=== PATIENT | male | born 1950 | race Caucasian/White ===

== ENCOUNTER 2018-02-27 08:39 | Outpatient (CLI) | payer OTHER, MEDICARE, SELFPAY ==
[2018-02-09 09:50] VITALS: BMI 30.9
[2018-02-27] MEDS: LACTATED RINGERS 1,000 ML 42 ML IV (09:05)
[2018-02-27] MEDS: CELECOXIB 200 MG CAPSULE PO (09:21)
[2018-02-27] MEDS: ACETAMINOPHEN 325 MG TABLET 975 MG PO (09:21)
[2018-02-27] MEDS: PREGABALIN 75 MG CAPSULE PO (09:22)
[2018-02-27 09:24] VITALS: BP 148/93; PULSE 77; RESP 16; TEMP 36.8; O2SAT 99; BMI 30.9
--- NOTE | 2018-02-27 10:01 | PM.PREOP ---
Pre-operative Note Interval Note Pre-op Check: Yes History & Physical Reviewed by Physician and Yes Exam Performed Changes: Yes H&P completed within 30 days and has changed as indicated here:: The patient had a flu shot on the day of his history and physical to which he had an adverse reaction. This has subsequently cleared. He was also found to have a right bundle branch block on his EKG and has had a satisfactory stress test since his history and physical.
--- NOTE | 2018-02-27 10:25 | P.OP_ITS ---
Operative Date/Time/Diagnoses Date of procedure: 02/27/18 Pre-op diagnosis: Left knee osteoarthritis Post-op diagnosis: same Procedure & Clinicians Procedure: Left total knee replacement Same procedure as scheduled: Yes Indications: The patient has had progressively worsening left knee pain with radiographic changes consistent with arthritis. Non-operative management has failed and the patient has requested total knee replacement. The risks, benefits and alternatives to surgery were discussed with the patient prior to proceeding. Risks discussed included, but were not limited to, failure to relieve pain, stiffness, infection, nerve damage, deep venous thrombosis, pulmonary embolism, stroke, coma, heart attack, permanent paralysis and , as well as the potential need for eventual revision of the prosthetic. Surgeon: Danilo Billings Board Certified Music Therapist: Leonila Lerma Click Yes if Unassisted: No Anesthesia Type: Peripheral nerve block and Local Operative Notes Closure Type: primary Specimen(s): none sent Implants & Drains: Implants used in this procedure were manufactured by the [employer] and included the BCS II Journey total knee replacement with a size Applied: implant(s) Blood products transfused: none Procedure in detail: The patient was seen in the pre-operative area, where the left knee was identified as the operative site and this was marked with my initials. The patient received pre-operative antibiotics, and was taken to the operating room and placed on the operative table in the supine position. After satisfactory anesthesia, a cobol engineer out was performed. The left leg was encircled with a tourniquet about the proximal thigh, and the leg was prepared from the toes to the tourniquet with ChloroPrep in the usual fashion and draped through sterile drapes. The leg was elevated and exsanguinated with Eschmark bandage and the tourniquet inflated to [250] mmHg pressure. The knee was approached through an approximately 18 cm incision centered over the patella and carried into the knee through a medial parapatellar arthrotomy. The anterior osteophytes and soft tissues were removed. The rotational landmarks of [place]'s line and the transepicondylar axis were marked on the femur with electrocautery, and intramedullary guide holes for the femur and tibia were created. The distal femoral cut was made in 6 degrees of valgus using the intramedullary guide at the primary cut setting. The proximal tibial cut was then made using the intramedullary guide, taking 9 mm of bone off the less involved side. The extension gap was checked and the rotation of the femoral component confirmed with the gap balancing blocks. The anterior, posterior and chamfer cuts were then made. The posterior osteophytes and soft tissues were then removed. The posterior capsule was injected with part of a mixture of 50 ml 0.25% Marcaine mixed with 20 ml Exparel and 4 mg of morphine for post- operative pain control. The remainder of this mixture was injected into the capsule and subcutaneous tissues during cement curing.The tibia was prepared with the rotation set by an extra medullary guide. Trial tibial and femoral components were then placed and the intercondylar notch cut through the femoral trial. Range of motion was [], with good stability throughout the range. The patella was then cut to accommodate the patellar prosthetic. There was no need for a lateral release.The trials were then removed, and the femoral hole plugged with a bone plug. The bone was prepared with pulsatile lavage, and dried with a sponge. Cement was applied and the final prosthetics placed. Excess cement was removed during and after cement curing. After confirming there was no extruded cement posteriorly, the final tibial insert was placed. The knee was copiously irrigated and the tourniquet deflated. Hemostasis was obtained. The capsule was closed with interrupted # 2 polyester sutures. The subcutaneous layer was closed with 3-0 Vicryl, and the skin with a running 3-0 V -Lock suture and SteriStrips. An Aquacel Ag dressing was applied and the patient was taken to recovery having tolerated the procedure well. Condition: stable Disposition: PACU Plan for aftercare: The patient will be maintained on a standard total knee replacement protocol with weight bearing as tolerated. The patient will receive aspirin and sequential compression devices for DVT prophylaxis. The patient will be discharged home when safe for the home environment.
--- NOTE | 2018-02-27 10:50 | SUR.PREOP ---
After discussion with anesthesia and Dr. Billings, it was decided to reschedule the pt's case. The concern was that the pt had 100mg injection of Lovenox this morning. Dr. Billings to the bedside to discuss and reschedule with pt. A continuing bridging dose of Lovenox was provided by Dr. Billings and the pt is to return on Tuesday at 0800 for his procedure. Per Dr. Billings the last dose of Lovenox will be night, pt is not to take it morning. The pt stated that he understood these instructions. Spouse at bedside confirmed that she also understood. Pt discharged home on foot after IV DC'd.
== END 2018-02-27 10:55 | disposition home or self-care (01) ==
LOC: AC 10:53 → LAB 03-02 14:33
PROVIDERS: Visit Provider Orthopaedic Surgery
PROC: 0SRD0JZ Replacement of Left Knee Joint with Synthetic Substitute, Open Approach (ICD-10-PCS; CPT 27447; principal; 2018-02-27 10:30)
DX: Z53.09 Procedure and treatment not carried out because of other contraindication (principal); M17.31 Unilateral post-traumatic osteoarthritis, right knee; Z79.01 Long term (current) use of anticoagulants

== ENCOUNTER 2018-03-03 07:54 | Inpatient (IN) | payer OTHER, MEDICARE, SELFPAY ==
[2018-02-28 08:34] VITALS: BMI 30.9
[2018-03-03] VITALS (20 sets, daily range): BP systolic 92–144; BP diastolic 52–87; PULSE 60–100; RESP 12–18; TEMP 36.3–37.1; O2SAT 93–98; BMI 30.9
--- NOTE | 2018-03-03 06:30 | DI.RAD.S_ITS ---
PROCEDURE: XR KNEE LT 1TO2V INDICATIONS: prosthesis placement TECHNIQUE: 2 view(s) of the knee acquired. COMPARISON: [facility] Ever Lindquist, JOSEPH, XR KNEE ARTHRITIC SERIES LT, 10/11/2017, 8:44. FINDINGS: Bones: Patient is status post knee joint arthroplasty. Hardware components are in expected positions. Visualized bony structures are intact. The previously seen staple along the lateral aspect of the proximal tibia has been removed. Soft tissues: Overlying postoperative changes are noted. Expected postoperative changes within the overlying soft tissues are present with areas of soft tissue air, edema, and fluid. No unexpected radiopaque foreign bodies are evident. IMPRESSION: Expected postoperative changes related to a total left knee arthroplasty. Dictated by: Nikita Bravo M.D. on 03/03/2018 at 12:11 Approved by: Nikita Bravo M.D. on 03/03/2018 at 12:11
[2018-03-03] MEDS: ACETAMINOPHEN 325 MG TABLET 975 MG PO ×3 (08:34→20:52)
[2018-03-03] MEDS: CELECOXIB 200 MG CAPSULE PO (08:35)
[2018-03-03] MEDS: PREGABALIN 75 MG CAPSULE PO (08:35)
[2018-03-03] MEDS: LACTATED RINGERS 1,000 ML 42 ML IV ×2 (08:52→10:53)
[2018-03-03] MEDS: fentaNYL 100 MCG/2 ML INJ 50 MCG IV (09:20)
[2018-03-03] MEDS: MIDAZOLAM 2 MG/2 ML VIAL IV (09:20)
--- NOTE | 2018-03-03 09:29 | PM.PREOP ---
Pre-operative Note Interval Note Pre-op Check: Yes History & Physical Reviewed by Physician and Yes Exam Performed Changes: No
--- NOTE | 2018-03-03 09:37 | SUR.PREOP ---
Block start time 0925[] . Monitoring initiated and maintained throughout procedure. Oxygen and medications given per anesthesiologist instructions. Patient remained stable throughout procedure, no adverse reactions noted. Block end time [30].
[2018-03-03] MEDS: CEFAZOLIN 2 GM/100 ML FROZ.PIGGY IV ×2 (09:50→17:32)
--- NOTE | 2018-03-03 10:09 | SUR.OPER ---
Supine on padded OR bed. Pillow under head, arms secured on padded armboards <90 degree abduction. Safety belt across torso. Non-operative leg secured with tape over blanket over lower leg. Operative leg secured in DeMayo/Migue positioner. Foam padded brace at thigh of operative leg.
[2018-03-03] MEDS: BUPIVACAINE LIPOSOME 266 MG/20 ML VIAL INJ ×2 (10:19)
[2018-03-03] MEDS: BUPIVACAINE 0.25% W/ EPI VIAL 50 ML INJ (10:19)
[2018-03-03] MEDS: MORPHINE 4 MG/ML INJ INJ (10:21)
--- NOTE | 2018-03-03 12:19 | P.OP_ITS ---
Operative Date/Time/Diagnoses Date of procedure: 03/03/18 Time of procedure: 12:00 Pre-op diagnosis: Left knee osteoarthritis with retained tibial staple Post-op diagnosis: same Procedure & Clinicians Procedure: 1. Left total knee replacement 2. Removal of deep tibial hardware Same procedure as scheduled: Yes Indications: The patient has had progressively worsening left knee pain with radiographic changes consistent with arthritis. Non-operative management has failed and the patient has requested total knee replacement. The risks, benefits and alternatives to surgery were discussed with the patient prior to proceeding. Risks discussed included, but were not limited to, failure to relieve pain, stiffness, infection, nerve damage, deep venous thrombosis, pulmonary embolism, stroke, coma, heart attack, permanent paralysis and , as well as the potential need for eventual revision of the prosthetic. Surgeon: Danilo Billings Program Review Director: Melanie Fonseca Click Yes if Unassisted: No Anesthesia Type: General, Peripheral nerve block and Local Operative Notes Findings: Severe osteoarthritis with very large osteophytes and erosion of the medial tibia. The patient had previously undergone a proximal tibial surgery with a staple which interfered with the placement of the tibial prosthetic. This necessitated a ventral stem placement on the final prosthetic due to the damage to the tibia taking the staple out. Closure Type: primary Specimen(s): none sent Implants & Drains: Implants used in this procedure were manufactured by the [employer] and included the BCS II Journey total knee replacement with a size 7 left Oxinium femoral component, a size 6 left non porous Journey tibial base plate with a 16 mm x 100 mm Yaritza II stem, a 10 mm crosslink polyethylene tibial insert and a 38 mm oval Yaritza II patellar component. Applied: implant(s) Estimated Blood Loss (mL): 50 Tourniquet time (min): 96 Procedure in detail: The patient was seen in the pre-operative area, where the left knee was identified as the operative site and this was marked with my initials. The patient received pre-operative antibiotics, and was taken to the operating room and placed on the operative table in the supine position. After satisfactory anesthesia, a manager multimedia out was performed. The left leg was encircled with a tourniquet about the proximal thigh, and the leg was prepared from the toes to the tourniquet with ChloroPrep in the usual fashion and draped through sterile drapes. The leg was elevated and exsanguinated with Eschmark bandage and the tourniquet inflated to [250] mmHg pressure. The knee was approached through an approximately 18 cm incision centered over the patella and carried into the knee through a medial parapatellar arthrotomy. The anterior osteophytes and soft tissues were removed. The rotational landmarks of Haines's line and the transepicondylar axis were marked on the femur with electrocautery, and intramedullary guide holes for the femur and tibia were created. The distal femoral cut was made in 6 degrees of valgus using the intramedullary guide at the +2 cut setting due to the flexion contracture. The anterior, posterior and chamfer cuts were then made. The proximal tibial cut was made using an extramedullary guide due to interference with the intramedullary guide from the tibial staple. This took 9 mm off the lateral side which corresponded to a skim cut off the eroded medial side. The posterior osteophytes and soft tissues were then removed. The posterior capsule was injected with part of a mixture of 50 ml 0.25% Marcaine mixed with 20 ml Exparel and 4 mg of morphine for post-operative pain control. The remainder of this mixture was injected into the capsule and subcutaneous tissues during cement curing. Prior to tibial preparation due to the interference of the staple with the intramedullary stem of the standard tibial prosthetic the stable needed to be removed. An approximately 4 cm incision was created overlying the expected location of the staple. This was carried through the anterior compartment musculature with Bovie electrocautery cutting the musculature parallel to its fibers. The staple was identified. A quarter-inch straight osteotome was used to circumferentially loosen the stable from the surrounding bone and then a vice heavy equipment operator/paver was used to remove the staple. Due to the damage caused from the removal of the staple I thought it would be prudent to add a short stem to the tibial prosthetic and the tibial canal was enlarged using cylindrical reamers to accommodate the stem. The tibia was prepared with the rotation set by an extra medullary guide. Trial tibial and femoral components were then placed and the intercondylar notch cut through the femoral trial. Range of motion was [0- 120 degrees], with good stability throughout the range. The patella was then cut to accommodate the patellar prosthetic. There was no need for a lateral release.The trials were then removed, and the femoral hole plugged with a bone plug. The bone was prepared with pulsatile lavage, and dried with a sponge. Cement was applied and the final prosthetics placed. Excess cement was removed during and after cement curing. After confirming there was no extruded cement posteriorly, the final tibial insert was placed. The knee was copiously irrigated and the tourniquet deflated. Hemostasis was obtained. The capsule was closed with interrupted # 2 polyester sutures. The subcutaneous layer was closed with 3-0 Vicryl, and the skin with a running 3-0 V-Lock suture and SteriStrips. The staple removal dressing was closed with 0 Vicryl in the muscular fascia, 3 O Vicryl in the subcutaneous layer and a running 4 0 Monocryl and Steri-Strips for skin. Dressings of sterile 4x4s, sterile cast padding and an Alfredo wrap were then applied and the patient was transferred to the recovery room having tolerated the procedure well. Complications: none Condition: stable Disposition: PACU Plan for aftercare: The patient will be maintained on a standard total knee replacement protocol with weight bearing as tolerated. The patient will receive aspirin and sequential compression devices for DVT prophylaxis. The patient will be discharged home when safe for the home environment.
[2018-03-03] MEDS: INSULIN REGULAR 100 UNIT/ML 3 ML VIAL SUBCUT (12:29)
[2018-03-03] MEDS: LACTATED RINGERS 1,000 ML 125 ML IV ×3 (13:35→21:35)
--- NOTE | 2018-03-03 15:01 | PC.NURSE ---
POST OP ARRIVAL - drowsy, awake and responses are appropriate, spouse at bedside, bp 132/84, p 92, 2l 95%, states pain or pressure 4 on scale 0/10, zelda wrap over 4x4's, steristrips, cdi, able wiggle toes and +cms, denies nausea and vale ice chips then apple juice.
--- NOTE | 2018-03-03 15:05 | PT.IPTN ---
Current Diagnoses Bilateral primary osteoarthritis of knee (03/03/18) Other specified postprocedural states (03/03/18) Surgery Performed Operation Date: 03/03/18 09:45 Actual Procedures p Total Knee Arthroplasty and Hardware Removal(Left) - Danilo Billings MD Physical Therapy Treatment Note M2 PT-IP Current Condition Start: 03/03/18 16:49 Freq: NEEDED Status: Active Protocol: Document 03/03/18 14:35 DCW (Rec: 03/03/18 17:02 DCW [id number]) Physical Therapy Current Condition Current Condition Evaluation Date 03/03/18 Treatment Diagnosis Decreased ROM, weakness, pain s/p L TKA Onset Date 03/03/18 Weight Bearing Status Weight Bearing Status Weight Bear as Tolerated M3 PT-IP Subjective Start: 03/03/18 16:49 Freq: NEEDED Status: Active Protocol: Document 03/03/18 14:35 DCW (Rec: 03/03/18 17:02 DCW [id number]) Subjective Physical Therapy Visit Type Type Initial Evaluation Visit Start Time 14:35 Visit Stop Time 15:06 Total Visit Minutes 31 Notes Pt presented to [facility] for a planned L TKA following failure of conservative treatment. Number of PAPER BUNDLER Visits 0 Physical Therapy Visit Comments Patient Comments Pt notes he feels pretty good , admits to a 5-6/10 pain while supine in bed. Pt reports he is a [facility] patient, and was expecting to go home on the day of surgery, but someone decided I had to come up here, so now I'm hoping for tomorrow. Patient Goals Get home as soon as I can. Therapy Pain Assessment Pain When Pain Assessed At Rest Pain Present Pain Present Pain Reported Location Left Knee Intensity 6 Scale Used Numeric (1 - 10) Description Pressure M4 PT-IP Mobility and Gait Start: 03/03/18 16:49 Freq: NEEDED Status: Active Protocol: Document 03/03/18 14:35 DCW (Rec: 03/03/18 17:02 DCW [id number]) PT-Bed Mobility Assessment Rolling Type of Rolling Roll to Left Level of Assist Independent Supine to Sit Supine to Sit Independent Sit to Supine Sit to Supine Independent Scooting Scooting to Edge of Bed Independent PT-Transfer Assessment Sit to and From Stand Sit to and from Stand Standby Assistance Equipment Transfer Assistive Device Bed Rail Gait Belt Front Wheeled Walker Gait Assessment Gait Gait Assistance Required: Contact Guard Assist Distance (Feet) 100 Able to Maintain Weight Bearing Status Yes During Gait Assistive Devices Assistive Device Gait Belt Front Wheeled Walker Gait Deviations General Gait Pattern Antalgic Comments Gait Comments Appropriate gait, step-through pattern with good step length and minimal antalgia PT-Balance Assessment Sitting Balance and Reactions Static Sitting Balance Ability Normal Dynamic Sitting Balance Ability Normal Standing Balance and Reactions Static Standing Balance Ability Good Dynamic Standing Balance Ability Good M5 PT-IP Objective Assessments Start: 03/03/18 16:49 Freq: NEEDED Status: Active Protocol: Document 03/03/18 14:35 DCW (Rec: 03/03/18 17:02 DCW [id number]) Orientation Orientation/Cognition Level of Alertness Alert Orientation Name Birthday Date Place Situation Language Function Ability No Deficits Noted Safety Awareness Understands Safety Issues Memory Description No Deficits Noted Gross Range of Motion Lower Extremity ROM Assessment Left Impaired Impairments Left knee ROM 7-106 Strength Lower Extremity Strength Assessment Left Impaired Comments Strength Comments Able to move left LE against gravity M6 PT-IP Treatment Start: 03/03/18 16:49 Freq: NEEDED Status: Active Protocol: Document 03/03/18 14:35 DCW (Rec: 03/03/18 17:02 DCW [id number]) Physical Therapy Treatment Exercises Exercises Ankle Pumps Gluteal Sets Quad Sets Knee ROM Measurement 7-106 Education Education Provided Weight Bearing Status Post-Op Packet Safety M7 PT-IP Assessment and Plan Start: 03/03/18 16:49 Freq: NEEDED Status: Active Protocol: Document 03/03/18 14:35 DCW (Rec: 03/03/18 17:02 DCW [id number]) PT Summary Assessment and Plan Potential Rehabilitation Potential Excellent Status of Condition at Evaluation Stable Summary Impairments Pain ROM Strength Assessment Summary Pt presents in excellent condition [id number], appropriate ROM and better than expected gait. After ambulation, pt noted overall decrease in pain to 4/10. Since pt is in the [facility] program, and had training prior to surgery, pt was knowledgeable with post-op expectations and his HEP. Scheduled for out-patient PT five days from today, and will likely do well at home until then. Goals Gait Goal Independent Gait Distance 300 Days to Meet Goals 1 Frequency of Treatment Frequency Of Treatment Once a Day Treatment Plan Physical Therapy Treatment Plan Gait Training Therapeutic Exercise Other Recommendations and Next Treatment Post-op TherEx, gait Focus Recommendations To Nursing Amount of Assist Needed Standby Assistance Discharge Recommendations PT Discharge Recommendations Home
[2018-03-03] MEDS: OXYCODONE IR 5 MG TABLET PO ×2 (16:28→20:51)
[2018-03-03] MEDS: hydrOXYzine pamoate 25 MG CAPSULE PO ×2 (16:30→22:32)
--- NOTE | 2018-03-03 16:37 | PC.NURSE ---
Addendum entered by Greer Shanks R.N. 03/03/18 22:38: No further bleed through left lateral knee dressing s/p reinforcement. Proximal shadowy drainage now visible through zelda wrap. Reinforced with bulky 4 x 4's and coban. Pt ambulatory with walker and standby assistance to bathroom to void several times. Pain 3-4/10 with spasms LLE. Medicated with oxycodone and vistaril as per emar. Administered 10 mg amlodipine per pt request at hs as states takes this med bid. Original Note: Addendum entered by Greer Shanks R.N. 03/03/18 18:04: Drainage to left lateral aspect of zelda wrap exceeding outlines. Reinforced with bulky 4 x 4's and coban. Will continue to monitor. Pt reports pain relief with oxycodone and vistaril. Room air 97%. CPAP available for pt. Spouse remains attentive and involved in pt's care. Pt took diet without difficulty. Original Note: Pt awake and alert in bed. 02 2l nc sats 99%. Denies use of oxygen @ home. CPAP for sleep. Decreased to 1L per nc and will monitor. Admits to left knee pain dull ache in nature as well as restless leg symptoms. Administered oxycodone and vistaril and will monitor. Pt admits to full sensation to BL LE's and states has been able to void when up with P.T. Encouraged urinal use for accurate measurement. Reinforced to pt and pt's spouse to call staff for assistance when needing/desiring out of bed. Lateral aspect of zelda wrap with small amount shadowy drainage; outlined. Ice to left knee in place. BL calf scd's in place.
[2018-03-03] MEDS: ZOLPIDEM 5 MG TABLET PO (20:51)
[2018-03-03] MEDS: DOCUSATE 100 MG CAPSULE PO (20:53)
[2018-03-03] MEDS: APIXABAN 5 MG TABLET PO (20:53)
[2018-03-03] MEDS: METFORMIN HCL 500 MG TABLET 1000 MG PO (20:57)
[2018-03-03] MEDS: VENLAFAXINE ER 75 MG CAP PO (20:58)
[2018-03-03] MEDS: METOPROLOL ER 50 MG TABLET PO (20:58)
[2018-03-03] MEDS: AMLODIPINE 5 MG TABLET 10 MG PO (21:33)
[2018-03-04] MEDS: OXYCODONE IR 5 MG TABLET PO ×3 (00:11→09:43)
[2018-03-04] MEDS: HYDROMORPHONE 0.5 MG INJ IV (00:45)
[2018-03-04] MEDS: CEFAZOLIN 2 GM/100 ML FROZ.PIGGY IV (02:55)
[2018-03-04 05:41] LABS: Hematocrit 31.7 % (41-53); Hemoglobin 11.2 g/dL (13.5-17.5)
[2018-03-04] MEDS: hydrOXYzine pamoate 25 MG CAPSULE PO (06:00)
[2018-03-04] MEDS: LEVOTHYROXINE 75 MCG TABLET PO (06:05)
[2018-03-04 06:12] VITALS: BP 107/62; PULSE 84; RESP 16; TEMP 36.9; O2SAT 94
[2018-03-04 08:37] VITALS: BP 113/68; PULSE 84; RESP 18; TEMP 36.8; O2SAT 96
--- NOTE | 2018-03-04 08:53 | PM.DS.1 ---
History of Present Illness Date Patient Seen: 03/04/18 Time Patient Seen: 08:53 Chief complaint: [id number] LEFT TOTAL KNEE ARTHROPLASTY Narrative: History of present illness and physical examination for this patient are contained in the chart in a previously completed note. Please refer to that note for this information. Discharge Providers Date of admission: 03/03/18 07:54 Primary care physician: Dejan Chávez MD Consults: 03/03/18 13:23 Consult to Discharge Planning Routine Comment: Consult to Physical Therapy Evaluate & Treat Comment: Physician Instructions: postop TKA protocol Consult to Respiratory Therapy Evaluate & Treat Comment: CPAP set up Physician Instructions: Evaluate and treat Discharge provider: Danilo Billings MD Discharge Date: 03/04/18 Summary Discharge Diagnosis: 1. Left knee osteoarthritis 2. Status post prior left proximal tibial osteotomy with staple in place 3. Acute post hemorrhagic anemia Hospital Course: The patient was admitted to the hospital and taken directly to the operating room on March 03, 2018 where he underwent a left total knee replacement and the removal of a staple from his prior high tibial osteotomy. This necessitated the placement of the stem on his tibial prosthetic but otherwise the surgery was routine. On postoperative day 1 he is reasonably comfortable. He has made multiple trips to and from the bathroom and has ambulated in the hallway. At the time of this dictation it is presumed he will make enough progress with physical therapy today to be discharged later in the day. If that is not the case he will be maintained in the hospital overnight. Status at Discharge Cognitive/behavioral status at discharge: Baseline Functional status at discharge: uses cane/walker Overall status at discharge: patient is progressing back to baseline Time Spent with Patient Less than 30 minutes Exam Vital Signs (past 8 hours): - 03/04/18 06:12 03/04/18 08:37 Temperature 98.5 F 98.2 F Pulse Rate 84 84 Respiratory Rate 16 18 Blood Pressure 107/62 113/68 Pulse Oximetry 94 96 Oxygen Delivery Method Room Air Oxygen Flow Rate 0 Narrative Exam Narrative: On physical examination the left knee wound is dressed. The dressing has been reinforced over the staple removal wound due to some bleeding. His calf is soft. Light touch and motion are intact in the left lower extremity. Objective Labs Result Diagrams: 03/04/18 05:13 Labs: Laboratory Results - last 24 hr 03/04/18 05:13 Hgb 11.2 L Hct 31.7 L Radiographs reveal an appropriately positioned left total knee replacement with tibial stem. There are no complications visible on radiographs. Discharge Plan Discharge Plan Patient Disposition: Home Discharge Med Rec/Prescriptions Prescriptions: New acetaminophen 325 mg Tablet 975 mg PO TID 40 Days Qty: 360 RF: 0 oxycodone 5 mg Tablet 5 mg PO Q3HR PRN (Reason: Pain, Moderate (4-6)) Qty: 60 RF: 0 hydroxyzine pamoate 25 mg Capsule 25 mg PO Q6HR PRN (Reason: Nausea) Qty: 40 RF: 0 apixaban [Eliquis] 5 mg Tablet 5 mg PO BID Qty: 60 RF: 0 Continue metoprolol tartrate 50 MG 50 mg PO BID RF: 0 venlafaxine 75 mg Capsule,Extended Release 24hr 75 mg PO BEDTIME RF: 0 meloxicam 15 mg Tablet 15 mg PO DAILY RF: 0 venlafaxine 150 mg Capsule,Extended Release 24hr 150 mg PO QAM RF: 0 losartan-hydrochlorothiazide 100-25 mg Tablet 1 tab PO DAILY RF: 0 amlodipine 10 mg Tablet 10 mg PO BID RF: 0 metformin 1,000 mg Tablet 1,000 mg PO BID RF: 0 zolpidem 10 mg Tablet 5 - 10 mg PO BEDTIME RF: 0 fenofibrate 160 mg Tablet 160 mg PO DAILY RF: 0 levothyroxine 75 mcg Capsule 75 mcg PO DAILY RF: 0 Discontinued enoxaparin [Lovenox] 100 mg/mL Syringe 100 mg subcut BID Qty: 5 RF: 0 Follow up/Referrals: Danilo Billings MD [Physician] - 3-5 Days Provider Discharge Instructions Diet: Diet as Tolerated and Carb-consistent/Diabetic Activity: You may bear weight as tolerated on your left leg. Cold/Heat Therapy: Apply ice to the left knee for 15 min every hour as needed. Skin/Wound/Dressing Care Report to your healthcare provider any signs of infection, such as:: chills, fever, night sweats, increased pain and unusual drainage Dressing: Leave the current dressing intact for 3 days. You may then remove it and place light gauze dressings over the wounds. If there is significant drainage from the wound please call the office. Discharge Data Primary Care Provider: Dejan Chávez Attending Provider: Danilo Billings Admit Date/Time: 03/03/18 07:54 Quality VTE Deep Vein Thrombosis/Pulmonary Embolism Present on Admission: No
--- NOTE | 2018-03-04 09:30 | PT.IPTN ---
Current Diagnoses Bilateral primary osteoarthritis of knee (03/03/18) Other specified postprocedural states (03/03/18) Surgery Performed Operation Date: 03/03/18 09:45 Actual Procedures p Total Knee Arthroplasty and Hardware Removal(Left) - Danilo Billings MD Physical Therapy Treatment Note M2 PT-IP Current Condition Start: 03/03/18 16:49 Freq: NEEDED Status: Discharge Protocol: Document 03/03/18 14:35 DCW (Rec: 03/03/18 17:02 DCW [id number]) Physical Therapy Current Condition Current Condition Evaluation Date 03/03/18 Treatment Diagnosis Decreased ROM, weakness, pain s/p L TKA Onset Date 03/03/18 Weight Bearing Status Weight Bearing Status Weight Bear as Tolerated M3 PT-IP Subjective Start: 03/03/18 16:49 Freq: NEEDED Status: Discharge Protocol: Document 03/04/18 09:30 GGD (Rec: 03/04/18 11:51 GGD [id number]) Subjective Physical Therapy Visit Type Type Treatment Note Visit Start Time 09:05 Visit Stop Time 09:30 Total Visit Minutes 25 Number of DEHYDRATOR TENDER Visits 1 Physical Therapy Visit Comments Patient Comments Pt states he feels ready to go home. Therapy Pain Assessment Pain When Pain Assessed At Rest Pain Present Pain Present Pain Reported Location Left Knee Intensity 6 Scale Used Numeric (1 - 10) Description Aching Pain Management Techniques Apply Cold Re-positioning Timing of Activity with Medications M4 PT-IP Mobility and Gait Start: 03/03/18 16:49 Freq: NEEDED Status: Discharge Protocol: Document 03/04/18 09:30 GGD (Rec: 03/04/18 11:51 GGD [id number]) PT-Bed Mobility Assessment Rolling Level of Assist Independent Supine to Sit Supine to Sit Independent Sit to Supine Sit to Supine Independent Scooting Scooting to Edge of Bed Independent PT-Transfer Assessment Sit to and From Stand Sit to and from Stand Standby Assistance Use of Upper Extremities Equipment Transfer Assistive Device Gait Belt Front Wheeled Walker Orthotic/Prosthetic Devices or Brace: No Transfers Transfer Destination Bed Transfer Ability Level of Assist Standby Assistance Use of Upper Extremities Gait Assessment Gait Gait Assistance Required: Contact Guard Assist Distance (Feet) 150 Able to Maintain Weight Bearing Status Yes During Gait Assistive Devices Assistive Device Gait Belt Front Wheeled Walker Orthotic/Prosthetic Devices or Brace: No Gait Deviations General Gait Pattern Antalgic Decreased Feet Clearance Factors Limiting Gait Function Factors Limiting Gait Function Limited Range of Motion Pain M5 PT-IP Objective Assessments Start: 03/03/18 16:49 Freq: NEEDED Status: Discharge Protocol: Document 03/03/18 14:35 DCW (Rec: 03/03/18 17:02 DCW [id number]) Orientation Orientation/Cognition Level of Alertness Alert Orientation Name Birthday Date Place Situation Language Function Ability No Deficits Noted Safety Awareness Understands Safety Issues Memory Description No Deficits Noted Gross Range of Motion Lower Extremity ROM Assessment Left Impaired Impairments Left knee ROM 7-106 Strength Lower Extremity Strength Assessment Left Impaired Comments Strength Comments Able to move left LE against gravity M6 PT-IP Treatment Start: 03/03/18 16:49 Freq: NEEDED Status: Discharge Protocol: Document 03/04/18 09:30 GGD (Rec: 03/04/18 11:51 GGD [id number]) Physical Therapy Treatment Exercises Exercises Ankle Pumps Quad Sets Straight Leg Raises Seated Knee Flexion/Extension Education Education Provided Post-Op Packet M7 PT-IP Assessment and Plan Start: 03/03/18 16:49 Freq: NEEDED Status: Discharge Protocol: Document 03/04/18 09:30 GGD (Rec: 03/04/18 11:51 GGD [id number]) PT Summary Assessment and Plan Summary Assessment Summary Pt improving with mobility. He did having increase in pain, but didn't limit tolerance. He was stable and safe with gait with FWW. Safe for D/C home with when medically stable. Frequency of Treatment Frequency Of Treatment Once a Day Treatment Plan Physical Therapy Treatment Plan Gait Training Therapeutic Exercise Other Recommendations and Next Treatment Post-op TherEx, gait Focus Recommendations To Nursing Amount of Assist Needed Standby Assistance Discharge Recommendations PT Discharge Recommendations Home with Assistance Outpatient PT
[2018-03-04] MEDS: APIXABAN 5 MG TABLET PO (09:40)
[2018-03-04] MEDS: ACETAMINOPHEN 325 MG TABLET 975 MG PO (09:40)
[2018-03-04] MEDS: LOSARTAN 50 MG TABLET 100 MG PO (09:41)
[2018-03-04] MEDS: FENOFIBRATE 160 MG TABLET PO (09:41)
[2018-03-04] MEDS: DOCUSATE 100 MG CAPSULE PO (09:41)
[2018-03-04] MEDS: hydroCHLOROthiazide 25 MG TABLET 37.5 MG PO (09:41)
[2018-03-04] MEDS: VENLAFAXINE ER 75 MG CAP 150 MG PO (09:42)
[2018-03-04] MEDS: METFORMIN HCL 500 MG TABLET 1000 MG PO (09:42)
[2018-03-04] MEDS: MELOXICAM 7.5 MG TABLET 15 MG PO (09:42)
[2018-03-04] MEDS: METOPROLOL ER 50 MG TABLET PO (09:42)
== END 2018-03-04 11:00 | disposition home or self-care (01) | DRG 470 ==
PROVIDERS: Admitting Provider Orthopaedic Surgery; Family Provider Family Medicine; PCP Family Medicine; Visit Provider Orthopaedic Surgery
PROC: 0SRD0JZ Replacement of Left Knee Joint with Synthetic Substitute, Open Approach (ICD-10-PCS; CPT 27447; principal; 2018-03-03 09:45)
DX: M17.32 Unilateral post-traumatic osteoarthritis, left knee (principal); E07.9 Disorder of thyroid, unspecified; G47.33 Obstructive sleep apnea (adult) (pediatric); I10 Essential (primary) hypertension; E11.9 Type 2 diabetes mellitus without complications; F32.9 Major depressive disorder, single episode, unspecified; Z79.84 Long term (current) use of oral hypoglycemic drugs
CPT/HCPCS: 36415; 64450; 73560; 82962; 85014; 85018; 97110; 97116; 97161; C1776; C9290; J0171; J0690; J1170; J2250; J2270; J2405; J2704; J3010